=== PATIENT | female | born 1940 | race Caucasian/White ===

== ENCOUNTER → 2018-02-09 10:48 | Outpatient (CLI) | payer MEDICARE, SELFPAY ==
--- NOTE | 2018-02-09 | DI.MG.S_ITS ---
BILATERAL DIGITAL SCREENING MAMMOGRAM 3D/2D WITH CAD: 02/09/2018 CLINICAL: Routine screening. Comparison is made to exams dated: 02/04/2017 mammogram, 02/04/2016 mammogram, and 01/27/2015 mammogram - [facility]. There are scattered fibroglandular elements in both breasts. Current study was also evaluated with a Computer Aided Detection (CAD) system. No significant masses, calcifications, or other findings are seen in either breast. There has been no significant interval change. IMPRESSION: NEGATIVE There is no mammographic evidence of malignancy. A 1 year screening mammogram is recommended. This exam was interpreted at Station ID: [id number]. NOTE: For mammograms, a report in lay terms will be sent to the patient. Approximately 15% of breast malignancies will not be visualized mammographically. In the management of a palpable breast mass, a negative mammogram must not discourage biopsy of a clinically suspicious lesion. Electronically Signed By: Walt cronin/isidra:02/09/2018 16:41:37 letter sent: Normal Exam ACR BI-RADS Category 1: Negative 3341F
== END ==
PROVIDERS: PCP Internal Medicine; Visit Provider Internal Medicine
DX: Z12.31 Encounter for screening mammogram for malignant neoplasm of breast (principal)
CPT/HCPCS: 77063; 77067

== ENCOUNTER → 2018-02-17 08:58 | Outpatient (CLI) | payer MEDICARE, SELFPAY ==
[2018-02-17 09:42] LABS: Add Manual Diff / Slide Review NO; Basophils Percent Auto 0.6 % (0-2); Eosinophils Percent Auto 2.6 % (2-4); Hemoglobin 13.2 g/dL (12.0-16.0); Lymphocytes Percent Auto 28.6 % (25-40); Mean Corpuscular HGB Conc 33.8 % (30-36); Mean Corpuscular Hemoglobin 29.9 PG (26-34); Mean Corpuscular Volume 88.4 fL (80-100); Monocytes Percent Auto 8.5 % (3-14); Neutrophils Absolute Auto 3200 /uL (3000-5900); Neutrophils Percent Auto 59.7 % (50-75); Platelet Count 231 X10^3/uL (150-400); Red Blood Cell Count 4.41 X10^6/uL (4.0-5.2); Red Cell Distribution Width 12.8 % (11.6-14.8); White Blood Cell Count 5.3 X10^3/uL (4.5-11.0)
[2018-02-17 10:09] LABS: Alanine Aminotransferase 13 IU/L (9-52); Albumin Globulin Ratio 1.3 (1.0-2.8); Alkaline Phosphatase 108 U/L (38-126); Aspartate Aminotransferase 18 IU/L (14-36); BUN Creatinine Ratio 22.2 (6-22); Bilirubin Total 0.7 mg/dL (0.2-1.3); Blood Urea Nitrogen 20 mg/dL (7-17); Calcium 9.6 mg/dL (8.4-10.2); Carbon Dioxide 29 mmol/L (22-32); Chloride 106 mmol/L (98-107); Cholesterol 240 mg/dL (140-199); Estimated Glomerular Filt Rate > 60.0 mL/min (>60); Glucose 109 mg/dL (80-110); HDL Cholesterol 62 mg/dL (40-60); HEMOLYSIS < 15 (0-50); LDL Cholesterol Calculated 147 mg/dL (<100); Potassium 4.4 mmol/L (3.4-5.1); Sodium 144 mmol/L (137-145); Triglycerides 154 mg/dL (35-150)
[2018-02-17 10:38] LABS: Carcinoembryonic Antigen 1.3 ng/mL (0.1-3.0)
== END ==
PROVIDERS: PCP Internal Medicine; Visit Provider Internal Medicine
DX: C18.9 Malignant neoplasm of colon, unspecified (principal); Z00.00 Encounter for general adult medical examination without abnormal findings; C15.9 Malignant neoplasm of esophagus, unspecified; I47.1 Supraventricular tachycardia
CPT/HCPCS: 36415; 80053; 80061; 82378; 85025

== ENCOUNTER → 2019-02-12 13:55 | Outpatient (CLI) | payer MEDICARE, SELFPAY ==
--- NOTE | 2019-02-12 | DI.MG.S_ITS ---
BILATERAL DIGITAL SCREENING MAMMOGRAM 3D/2D WITH CAD: 02/12/2019 CLINICAL: Routine screening. Comparison is made to exams dated: 02/09/2018 mammogram, 02/04/2017 mammogram, and 02/04/2016 mammogram - [facility]. There are scattered fibroglandular elements in both breasts. Current study was also evaluated with a Computer Aided Detection (CAD) system. There are benign calcifications in both breasts. No significant masses, calcifications, or other findings are seen in either breast. There has been no significant interval change. IMPRESSION: There is no mammographic evidence of malignancy. A 1 year screening mammogram is recommended. This exam was interpreted at Station ID: [id number]. NOTE: For mammograms, a report in lay terms will be sent to the patient. Approximately 15% of breast malignancies will not be visualized mammographically. In the management of a palpable breast mass, a negative mammogram must not discourage biopsy of a clinically suspicious lesion. Electronically Signed By: Joss alaniz/isidra:02/12/2019 17:28:47 letter sent: Normal Exam ACR BI-RADS Category 2: Benign Finding(s) 3342F
== END ==
PROVIDERS: PCP Internal Medicine; Visit Provider Internal Medicine
DX: Z12.31 Encounter for screening mammogram for malignant neoplasm of breast (principal)
CPT/HCPCS: 77063; 77067

== ENCOUNTER → 2019-02-16 10:42 | Outpatient (CLI) | payer MEDICARE, SELFPAY ==
[2019-02-16 12:36] LABS: BUN Creatinine Ratio 16.7 (6-22); Blood Urea Nitrogen 15 mg/dL (7-17); Calcium 9.8 mg/dL (8.4-10.2); Carbon Dioxide 26 mmol/L (22-32); Chloride 105 mmol/L (98-107); Cholesterol 252 mg/dL (140-199); Estimated Glomerular Filt Rate > 60.0 mL/min (>60); Glucose 116 mg/dL (80-110); HDL Cholesterol 69 mg/dL (40-60); HEMOLYSIS < 15 (0-50); LDL Cholesterol Calculated 149 mg/dL (<100); Potassium 4.8 mmol/L (3.4-5.1); Sodium 139 mmol/L (137-145); Triglycerides 170 mg/dL (35-150)
== END ==
PROVIDERS: PCP Internal Medicine; Visit Provider Internal Medicine
DX: E78.00 Pure hypercholesterolemia, unspecified (principal); I47.1 Supraventricular tachycardia
CPT/HCPCS: 36415; 80048; 80061

== ENCOUNTER 2019-04-09 13:53 | Emergency (ER) | payer MEDICARE, SELFPAY ==
[2019-04-09 13:55] VITALS: BP 194/102; PULSE 84; RESP 22; TEMP 37; O2SAT 99; BMI 25.1
--- NOTE | 2019-04-09 14:12 | ED.URI ---
HPI - URI/Sore Throat <DANK Trimble - Last Filed: 04/09/19 14:53> General Chief Complaint: Upper Respiratory Symptoms Stated Complaint: Upper Respiratory Infection Time Seen by Provider: 04/09/19 13:54 Source: patient Mode of arrival: ambulatory Limitations: no limitations History of Present Illness HPI Narrative: This is a 78-year-old female, history of remote smoker, presents to ED with dry cough, chills for 1 day, and watery eyes which started 7 days ago. Patient reports her voice changed to hoarse and continued to have dry cough today. The patient reports she was exposed to her granddaughter and daughter who were visiting from [place] and they had similar symptoms prior to her symptoms occurred. Patient denies fever, chest pain, extremity swelling, nausea vomiting. Patient reports her immunization for pneumococcal has been updated and had 1st dose of RZV but had not received flu immunization for this season. Related Data Home Medications Medication Instructions Recorded Confirmed ACETAMINOPHEN 650 mg PO PRN #0 05/22/12 CHOLECALCIFEROL (VITAMIN D3) 4,000 iu PO Q DAY #0 05/22/12 (Vitamin D) amitriptyline 75 mg PO HS #0 05/22/12 atenolol 25 mg PO QDAY #0 05/22/12 omeprazole 20 mg PO TID #0 05/22/12 Previous Rx's Medication Instructions Recorded benzonatate [Tessalon Perles] 100 mg PO TID PRN #10 cap 04/09/19 Allergies Allergy/AdvReac Type Severity Reaction Status Date / Time codeine Allergy Unknown Verified 04/09/19 14:03 hydrocodone Allergy Unknown Verified 04/09/19 14:03 Review of Systems <DANK Trimble - Last Filed: 04/09/19 14:53> Review of Systems Narrative: General: See HPI HEENT: Denies sinus pain, ear pain, sore throat, difficulty swallowing, dizziness. Respiratory: See HPI Cardiovascular: Denies chest pain, palpitations, orthopnea, edema. Gastrointestinal: Denies nausea, vomiting, abdominal pain, diarrhea, constipation, melena. : Denies dysuria, frequency, incontinence, hematuria, urinary retention. Musculoskeletal: Denies weakness, joint pain or bony pain. Skin: Denies rash, skin lesions, or other. Neurologic: Denies weakness, headache, numbness, change in speech, confusion, seizures, incoordination. Psychiatric: No concerning psychosocial issues. 12-point review of systems is negative except for those stated above. PFSH <DANK Trimble - Last Filed: 04/09/19 14:53> Medical History History of colon cancer (Acute) History of esophageal cancer (Acute) Social History (Updated 04/09/19 @ 14:16 by DANK Trimble) Smoking Status: Former smoker Exam <DANK Trimble - Last Filed: 04/09/19 14:53> Narrative Exam Narrative: GEN: Alert, oriented x 3, well appearing and nourished, and in no acute distress. Head: Normal cephalic, atraumatic. No scalp or temporal tenderness, palpable mass or rash. EYES: Pupils are equal, round, and reactive to light and accommodation. Extraocular muscles are intact bilaterally. There is no subconjunctival hemorrhage, exudate and sclera non-icteric. ENT: Bilateral auditory canals and tympanic membranes. Hearing grossly intact. Nose without bleeding, purulent discharge or deviation. Facial sinuses nontender to palpate. Mucous membrane moist, no mucosal lesion. Throat without erythema, tonsillar hypertrophy or exudate. Uvula in midline, airway patent. Neck: Trachea in midline. No JVD, non-tender without lymphadenopathy. No masses or thyroid megaly. Supple, non-tender and no meningeal signs. CARDIAC: Normal regular rate and rhythm without murmurs, gallops, or rubs. No chest wall tenderness. No peripheral edema, cyanosis or pallor. Capillary refill is less than 2 seconds. RESPIRATORY: Lungs are cleat to auscultate bilaterally. No cough, wheezes, rales, or rhonchi. No stridor, respiratory distress, increase work of breathing, or accessary muscle used. ABD: Abdomen soft, nontender and non-distended. No guarding or rebound tenderness to palpate. Bowel sounds are normal in all 4 quadrants. There is no palpable masses or organomegaly. EXT: Full painless ROM of all extremities with no loss of sensation, strength, effusion or edema. SKIN: Warm, dry, normal color for patient. No erythema, lesions or rash over visible areas. BACK: Nontender without deformity or crepitance. No flank tenderness. NEUROLOGICAL: Alert and oriented to place, time and person. Sensation and motor function intact bilaterally. No facial droops, dysphasia. PSYCHIATRIC: Good judgement and reason, without hallucinations, abnormal affect or abnormal behaviors during the examination. Patient is not suicidal. Initial Vital Signs Initial Vital Signs: Vital Signs Temperature 98.6 F 04/09/19 13:55 Pulse Rate 84 04/09/19 13:55 Respiratory Rate 22 04/09/19 13:55 Blood Pressure 194/102 H 04/09/19 13:55 Pulse Oximetry 99 04/09/19 13:55 <Dioni Ling DO - Last Filed: 04/09/19 15:15> Initial Vital Signs Initial Vital Signs: Vital Signs Temperature 98.6 F 04/09/19 13:55 Pulse Rate 84 04/09/19 13:55 Respiratory Rate 22 04/09/19 13:55 Blood Pressure 194/102 H 04/09/19 13:55 Pulse Oximetry 99 04/09/19 13:55 Scores <CELESTINE TrimbleP - Last Filed: 04/09/19 14:53> GCS Aneudy coma scale eye opening: Spontaneous Aneudy coma scale verbal response: Orientated Aneudy coma scale motor response: Obey commands [place] coma scale total score: 15 Course <CELESTINE TrimbleP - Last Filed: 04/09/19 14:53> Vital Signs Vital signs: Vital Signs - 8 hr 04/09/19 13:55 04/09/19 14:32 Temperature 98.6 F Pulse Rate 84 Respiratory Rate 22 Blood Pressure 194/102 H 151/71 H Pulse Oximetry 99 <Dioni Ling DO - Last Filed: 04/09/19 15:15> Vital Signs Vital signs: Vital Signs - 8 hr 04/09/19 13:55 04/09/19 14:32 Temperature 98.6 F Pulse Rate 84 Respiratory Rate 22 Blood Pressure 194/102 H 151/71 H Pulse Oximetry 99 MDM - URI/Sore Throat <CELESTINE TrimbleP - Last Filed: 04/09/19 14:53> Differential Diagnosis Differential diagnosis: Likely upper respiratory infection, viral infection and bronchitis Medical Records Attestation: I reviewed the patient's medical records. MDM Narrative Medical decision making narrative: The patient is nontoxic appearance who presents with nonproductive cough for 1 week. Initially she had chills for a day but she denies other constitutional symptoms. She reports she has been hydrating well, slept well, and no other chief complains it is size nonproductive cough. She was exposed to family member who had similar symptoms and now they are on oral steroids. Her respiratory physical exam was benign except hoarse voice. The patient was discharged to home with OTC Mucinex DM and Tessalone perles for cough. Patient was advised to hydrate adequately and continue with supportive care at home. I discussed return precautions with patient and patient agrees with treatment plan. No further questions were expressed this time. Discharge Plan Departure Patient Disposition: Home Clinical Impression: Bronchitis Discharge Date/Time: 04/09/19 14:32 Instructions: DI for Bronchiolitis Activity Restrictions/Additional Instructions: You have been diagnosed with [bronchitis and cough. Your lung sounds are clear to auscultate. You might have exposed to upper respiratory virus from your family.]. What to do: *Take your medications as directed. Tessalon cough perles are ordered for to use as needed for cough. Please per get OTC Mucinex DM and take it twice a day as needed. Please hydrate adequately. *Follow up with your primary care provider in 2-3 days, call for an appointment. Let them know you were seen in the ED and that we asked you to be seen in follow up. *Return to ED if you have any new, worsening, or concerning symptoms, such as [chest pain, breathing difficulty, unable to tolerate fluids, fever, increasing productive cough, abdominal pain, or any acute concerns]. Prescriptions: New benzonatate [Tessalon Perles] 100 mg capsule 100 mg PO TID PRN (Reason: cough) Qty: 10 RF: 0 No Action ACETAMINOPHEN 650 mg PO PRN Qty: 0 RF: 0 amitriptyline 75 MG tablet 75 mg PO HS Qty: 0 RF: 0 atenolol 25 MG tablet 25 mg PO QDAY Qty: 0 RF: 0 omeprazole 40 MG capsule,delayed release(DR/EC) 20 mg PO TID Qty: 0 RF: 0 CHOLECALCIFEROL (VITAMIN D3) (Vitamin D) 4,000 iu PO Q DAY Qty: 0 RF: 0 Referrals: Nael Lovett MD [Primary Care Provider] - <Dioni Ling DO - Last Filed: 04/09/19 15:15> Sign Out Provider Sign Out Attestation: I was available for consultation during this patient's emergency department encounter
[2019-04-09 14:32] VITALS: BP 151/71
== END 2019-04-09 14:32 | disposition home or self-care (01) ==
PROVIDERS: Emergency Provider Nurse Practitioner Family; PCP Internal Medicine
DX: J40 Bronchitis, not specified as acute or chronic (principal)
CPT/HCPCS: 99282

== ENCOUNTER 2019-04-24 11:36 | Day surgery (SDC) | payer MEDICARE, SELFPAY ==
--- NOTE | 2019-04-24 | PATH_ITS ---
[facility] Accession Number: [id number] . 01 Material submitted: . colon - COLON POLYP NEAR ANASTOMOSIS . 01 Clinical history: . ENCOUNTER FOR SCREENING FOR MALIGNANT NEOPLASM . 02 Diagnosis: Colon, Near Anastomosis, Polyp: Sessile serrated adenoma. MRV 04/25/2019 1537 Local . 02 Electronically signed: . Ramos Cody MD, PhD, Pathologist NPI- [id number] . 01 Gross description: . COLON POLYP NEAR ANASTOMOSIS: Received in formalin are 3 fragment(s) of tovar, soft tissue measuring 0.1 x 0.1 x 0.1 cm to 0.4 x 0.2 x 0.2 cm which is entirely submitted and submitted entirely in 1 cassette(s) /[facility] 04/24/2019 2248 Local . 02 Pathologist provided ICD-10: D12.6 . 02 CPT . 266418 Performed at: 01 [facility] [address] [place] [address], [place], [place] [id number] MD Tay Parker MD Phone: [phone] Performed at: 02 [facility] [address] [place], [place] [id number] MD Paloma Duncan MD Phone: [phone]
[2019-04-24 12:16] VITALS: BP 118/78; PULSE 90; RESP 16; TEMP 36; O2SAT 96; BMI 24.0
[2019-04-24] MEDS: SODIUM CHLORIDE 0.9% 1,000 ML 200 ML IV (12:21)
--- NOTE | 2019-04-24 12:50 | P.HP_ITS ---
History of Present Illness History of Present Illness Date Patient Seen: 04/24/19 Time Patient Seen: 13:02 Chief complaint: 46470 SCREENING COLONOSCOPY Narrative: 78-year-old female presents for is regular screening colonoscopy - personal history of bowel resection for colon cancer. Now receives colonoscopies every 5 years. Last 5 years ago No abdominal complaints Tolerated prep well Patient History Family & Social History Social History: household members family Tobacco & Substance use: Smoking Status Former smoker Meds Home Medications and Allergies Home Medications Medication Instructions Recorded Confirmed Type ACETAMINOPHEN 650 mg PO PRN #0 05/22/12 History CHOLECALCIFEROL (VITAMIN D3) 4,000 iu PO Q DAY #0 05/22/12 History (Vitamin D) amitriptyline 75 mg PO HS #0 05/22/12 History atenolol 25 mg PO QDAY #0 05/22/12 History omeprazole 20 mg PO TID #0 05/22/12 History benzonatate [Tessalon Perles] 100 mg PO TID PRN #10 cap 04/09/19 Rx Allergies Allergy/AdvReac Type Severity Reaction Status Date / Time codeine Allergy Unknown Verified 04/09/19 14:03 hydrocodone Allergy Unknown Verified 04/09/19 14:03 Review of Systems Constitutional Constitutional: Denies fever(s) Eyes Eyes: Denies bulging eyes ENT Ears, Nose, Mouth, and Throat: No lip swelling Cardiovascular Cardiovascular: Denies generalize swelling Respiratory Respiratory: Denies stridor Gastrointestinal Gastrointestinal: Denies coffee ground emesis Musculoskeletal Musculoskeletal: Denies loss of height Integumentary/Breasts Skin/Breast: Denies wounds Neurologic Neurologic: Denies abnormal speech and Denies confusion Psychiatric Psychiatric: Denies confusion and Denies tactile hallucinations Endocrine Endocrine: Denies deepening of the voice Hematologic/Lymphatic Hematologic/Lymphatic: Denies lymphadenopathy Allergic/Immunologic Allergic/Immunologic: Denies lip swelling Exam Vital Signs (past 8 hours): - 04/24/19 12:16 Temperature 96.8 F L Pulse Rate 90 Respiratory Rate 16 Blood Pressure 118/78 Pulse Oximetry 96 Oxygen Delivery Method Room Air Const General: cooperative and healthy appearing Orientation: alert [facility] Head: normal to inspection Nose: nares normal Mouth: oral mucosae normal and lip normal Eyes Eyelids: eyelids normal Conjunctivae: conjunctivae normal Sclera: sclerae normal Neck Neck: supple and other (No thyromegally) Chest Chest: other (LCTAB , regular respiratory effort) Cardio Rhythm: regular rhythm Heart Sounds: S1 normal, S2 normal, no gallops, no murmurs and no rubs GI Other: Abdomen soft nontender nondistended Skin General: no rashes or lesions noted Neuro General: alert and awake Psych Appearance: grossly normal Affect: normal affect Assessment & Plan Assessment & Plan narrative: 78-year-old female status post resection for colon cancer, now 5 years status post most recent colonoscopy due. Risks and benefits procedure including , perforation, missed lesion, hypoxia all discussed Patient ready to proceed
[2019-04-24] MEDS: fentaNYL 250 MCG/5 ML INJ IV (13:28)
[2019-04-24] MEDS: MIDAZOLAM 5 MG/5 ML VIAL IV (13:28)
--- NOTE | 2019-04-24 13:33 | PM.OP.ENDO ---
Operative Date/Time/Diagnoses Date of procedure: 04/24/19 Time of procedure: 13:33 Pre-op diagnosis: colo rectal cancer screen Post-op diagnosis: same Procedure & Clinicians Study performed: Colonoscopy-screening -complete Polypectomy x1 cold biopsy forceps new Same procedure as scheduled: Yes Indications: 78-year-old woman with a personal history of colorectal cancer status post colon resection. Here 5 years after most recent screening colonoscopy. Surgeon: Delvis Hernandez Procedure Notes SCOAP/Timeout: Complete Procedure in detail: Patient was brought to the endoscopy suite, time-out was completed. She she was sedated over the entire course of the procedure with 2 mg of midazolam and 50 micro g of fentanyl. Digital rectal exam was performed without lesion 160 cm colonoscope was then introduced through the anus and advanced through the folds of the rectum and the colon until her apparent ileocolic anastomosis was identified -the scope was then slowly withdrawn a small sessile polyp was removed in the vicinity of the anastomosis with cold biopsy forcep. The remainder of the colon was inspected there are no additional lesions including with retroflexion of the scope in the rectum. Prep was adequate Scope withdrawal time: 8 minutes Sedation minutes: 23 Specimen(s): other (Sessile polyp) Complications: none Impression: 1. Small polyp status post polypectomy Post-procedure Recommendations: Colonscopy in 5 years Plan for aftercare: PACU then home Follow up: as needed Disposition: PACU
[2019-04-24 13:35] VITALS: BP 103/74; PULSE 76; RESP 20; TEMP 37.2; O2SAT 94
[2019-04-24 13:40] VITALS: BP 128/74; PULSE 71; RESP 18; O2SAT 96
[2019-04-24 13:45] VITALS: BP 131/66; PULSE 84; RESP 16; O2SAT 96
[2019-04-24 13:51] VITALS: BP 134/74; PULSE 73; RESP 14; O2SAT 96
[2019-04-24 13:59] VITALS: BP 146/61; PULSE 69; RESP 12; TEMP 36.2; O2SAT 95
== END 2019-04-24 14:15 | disposition home or self-care (01) ==
LOC: ENDO 11:38
PROVIDERS: PCP Internal Medicine; Visit Provider Surgery
PROC: 0DJD8ZZ Inspection of Lower Intestinal Tract, Via Natural or Artificial Opening Endoscopic (ICD-10-PCS; CPT 45378; principal; 2019-04-24 12:45)
DX: Z85.038 Personal history of other malignant neoplasm of large intestine (principal); D12.6 Benign neoplasm of colon, unspecified
CPT/HCPCS: 45380; 99152; J2250; J3010

== ENCOUNTER 2019-09-13 07:51 | Day surgery (SDC) | payer MEDICARE, SELFPAY ==
[2019-09-13 08:27] VITALS: BP 160/92; PULSE 94; RESP 18; TEMP 36.2; O2SAT 94
[2019-09-13] MEDS: PROPARACAINE 0.5% OPHTH SOL 2 DROPS EYE-OP (08:33)
[2019-09-13 08:35] VITALS: BP 160/92; PULSE 69; RESP 12; TEMP 36.2; O2SAT 94
[2019-09-13] MEDS: CATARACT EYE COMPOUND (10 DROPS/SYRINGE) 3 DROPS EYE-OP (08:36)
[2019-09-13 08:37] VITALS: BMI 25.3
--- NOTE | 2019-09-13 09:03 | PM.PREOP ---
Pre-operative Note Interval Note History & Physical reviewed/Exam performed by Physician: Yes Changes to H&P: No
--- NOTE | 2019-09-13 09:06 | PM.PREOP ---
Pre-operative Note Interval Note History & Physical reviewed/Exam performed by Physician: Yes Changes to H&P: No
--- NOTE | 2019-09-13 09:26 | SUR.OPER ---
Supine on eye stretcher, head on extension cradle secured with tape. Arms tucked at sides with blanket. Pillow under knees.
[2019-09-13] MEDS: BALANCED SALT IRRIG SOLN NO.2 15 ML 5 ML IRR (09:30)
[2019-09-13] MEDS: BALANCED SALT IRRIG SOLN NO.2 500 ML, EPINEPHrine 1 MG IRR (09:43)
[2019-09-13] MEDS: PHENYLEPHRINE/LIDOCAINE VIAL (OR) 0.2 ML EYE-OP (09:44)
[2019-09-13] MEDS: LIDOCAINE 2% INJ SDV 2 ML INJ (09:44)
[2019-09-13] MEDS: TETRACAINE 0.5% OPHTH DROPS 4 ML 2 DROPS EYE-OP (09:44)
--- NOTE | 2019-09-13 09:44 | PM.OP.1 ---
Procedure & Clinicians Procedure: Cataract extraction with intraocular lens implant, right. 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 The correct patient, surgical site and lens were confirmed. 0.5 % tetracaine drops were placed in the right eye. The patient was prepped and draped in the typical sterile manner. A lid speculum was placed in the eye. 2% lidocaine was placed on the eye. A paracentesis port was created with a side-port blade. 0.1 mL of 1% preservative free lidocaine with phenylephrine was injected into the anterior chamber. Viscoelastic was injected into the anterior chamber. A 2.6mm keratome was used to create a clear corneal temporal incision. Cystotome and Utrata forceps were used to create a continuous curvilinear capsulorrhexis. Balanced salt solution was used to hydrodissect the nucleus. Phacoemulsification was used to remove the lens. The capsular bag was inflated with viscoelastic. A Atkins ZCBOO +27.5D lens was inserted into the capsule. Viscoelastic was removed and the wound hydrated. The wound was found to be leak free and the eye was assessed to be at normal physiologic pressure. 0.1mL Moxifloxacin (5mg/mL) preservative free was injected into the anterior chamber. The lid speculum was removed and the patient left the operating room in excellent condition. Complications: none Post-operative Condition: stable Disposition: same day surgery
[2019-09-13] MEDS: MOXIFLOXACIN INJ 5 MG/ML VIAL EYE-OP (09:45)
[2019-09-13] MEDS: CHONDROIDTIN/SOD HYALURONATE 1.05 ML SYRINGE INTRAOCULA (09:45)
[2019-09-13 09:50] VITALS: BP 189/79; PULSE 63; RESP 18; TEMP 36.4; O2SAT 94
--- NOTE | 2019-09-13 10:02 | SUR.PHASEII ---
pt awake and alert. States she is ready to go home. Pt to be discharged with her grandaughter. Pt denies any complaints.
== END 2019-09-13 10:05 | disposition home or self-care (01) ==
LOC: OR 07:53
PROVIDERS: PCP Internal Medicine; Referring Provider Ophthalmology; Visit Provider Ophthalmology
PROC: (CPT 66984; principal; 2019-09-13 09:30)
DX: H25.11 Age-related nuclear cataract, right eye (principal)
CPT/HCPCS: 66984; J0171; J2250; J3010

== ENCOUNTER 2019-09-27 07:21 | Day surgery (SDC) | payer MEDICARE, SELFPAY ==
[2019-09-27 08:27] VITALS: BP 163/87; PULSE 62; RESP 12; TEMP 36.3; O2SAT 98; BMI 25.0
[2019-09-27] MEDS: CATARACT EYE COMPOUND (10 DROPS/SYRINGE) 3 DROPS EYE-OP (08:35)
[2019-09-27] MEDS: PROPARACAINE 0.5% OPHTH SOL 2 DROPS EYE-OP (08:36)
--- NOTE | 2019-09-27 08:37 | PM.PREOP ---
Pre-operative Note Interval Note History & Physical reviewed/Exam performed by Physician: Yes Changes to H&P: No
[2019-09-27] MEDS: PHENYLEPHRINE/LIDOCAINE VIAL (OR) 0.2 ML EYE-OP (09:32)
[2019-09-27] MEDS: BALANCED SALT IRRIG SOLN NO.2 15 ML 5 ML IRR (09:32)
[2019-09-27] MEDS: LIDOCAINE 2% INJ SDV 2 ML INJ (09:32)
[2019-09-27] MEDS: MOXIFLOXACIN INJ 5 MG/ML VIAL EYE-OP (09:32)
[2019-09-27] MEDS: CHONDROIDTIN/SOD HYALURONATE 1.05 ML SYRINGE INTRAOCULA (09:33)
[2019-09-27] MEDS: BALANCED SALT IRRIG SOLN NO.2 500 ML, EPINEPHrine 1 MG IRR (09:33)
[2019-09-27] MEDS: TETRACAINE 0.5% OPHTH DROPS 4 ML 2 DROPS EYE-OP (09:34)
--- NOTE | 2019-09-27 09:49 | PM.OP.1 ---
Procedure & Clinicians Procedure: Cataract extraction with intraocular lens implant, left. Same procedure as scheduled: Yes Indications: Visually significant age related nuclear sclerosis, left Surgeon: Cameron Deal Click Yes if Unassisted: Yes Anesthesia Type: MAC +/- Operative Notes Procedure in detail: The patient was brought to the operating suite. The correct patient, surgical site and lens were confirmed. 0.5 % tetracaine drops were placed in the left eye. The patient was prepped and draped in the typical sterile manner. A lid speculum was placed in the eye. 2% lidocaine was placed on the eye. A paracentesis port was created with a side-port blade. 0.1 mL of 1% preservative free lidocaine with phenylephrine was injected into the anterior chamber. Viscoelastic was injected into the anterior chamber. A 2.6mm keratome was used to create a clear corneal temporal incision. Cystotome and Utrata forceps were used to create a continuous curvilinear capsulorrhexis. Balanced salt solution was used to hydrodissect the nucleus. Phacoemulsification was used to remove the lens. The capsular bag was inflated with viscoelastic. A Atkins ZCBOO +31.0D lens was inserted into the capsule. Viscoelastic was removed and the wound hydrated. The wound was found to be leak free and the eye was assessed to be at normal physiologic pressure. 0.1mL Moxifloxacin (5mg/mL) preservative free was injected into the anterior chamber. The lid speculum was removed and the patient left the operating room in excellent condition. Complications: none Post-operative Condition: stable Disposition: same day surgery
[2019-09-27 09:56] VITALS: BP 194/92; PULSE 69; RESP 16; TEMP 36.6; O2SAT 95
== END 2019-09-27 10:07 | disposition home or self-care (01) ==
LOC: OR 07:22
PROVIDERS: PCP Internal Medicine; Referring Provider Ophthalmology; Visit Provider Ophthalmology
PROC: (CPT 66984; principal; 2019-09-27 09:00)
DX: H25.12 Age-related nuclear cataract, left eye (principal)
CPT/HCPCS: 66984; J0171; J2250; J3010

== ENCOUNTER → 2020-02-27 14:38 | Outpatient (CLI) | payer MEDICARE, SELFPAY ==
[2020-02-27 15:59] LABS: Add Manual Diff / Slide Review NO; Basophils Absolute Auto 0 /uL (0-100); Basophils Percent Auto 0.5 % (0-2); Eosinophils Absolute Auto 200 /uL (0-450); Eosinophils Percent Auto 2.7 % (2-4); Hematocrit 37.4 % (36-46); Hemoglobin 12.4 g/dL (12.0-16.0); Lymphocytes Absolute Auto 2100 /uL (1100-4500); Mean Corpuscular HGB Conc 33.2 % (30-36); Mean Corpuscular Hemoglobin 29.3 PG (26-34); Mean Corpuscular Volume 88.2 fL (80-100); Monocytes Absolute Auto 500 /uL (0-900); Monocytes Percent Auto 8.4 % (3-14); Neutrophils Absolute Auto 3100 /uL (1500-7000); Neutrophils Percent Auto 52.4 % (50-75); Platelet Count 224 X10^3/uL (150-400); Red Blood Cell Count 4.24 X10^6/uL (4.0-5.2)
[2020-02-27 16:48] LABS: Alanine Aminotransferase 8 IU/L (<35); Albumin 3.9 g/dL (3.5-5.0); Albumin Globulin Ratio 1.3 (1.0-2.8); Alkaline Phosphatase 115 U/L (38-126); Aspartate Aminotransferase 22 IU/L (14-36); BUN Creatinine Ratio 20.7 (6-22); Bilirubin Total 0.4 mg/dL (0.2-1.3); Blood Urea Nitrogen 17 mg/dL (7-17); Calcium 9.5 mg/dL (8.4-10.2); Carbon Dioxide 27 mmol/L (22-32); Chloride 105 mmol/L (98-107); Cholesterol 222 mg/dL (140-199); Estimated Glomerular Filt Rate > 60.0 mL/min (>60); Globulin 2.9 g/dL (1.7-4.1); Glucose 138 mg/dL (80-110); HDL Cholesterol 59 mg/dL (40-60); HEMOLYSIS < 15 (0-50); LDL Cholesterol Calculated 118 mg/dL (<100); Potassium 3.7 mmol/L (3.4-5.1); Sodium 138 mmol/L (137-145); Total Protein 6.8 g/dL (6.3-8.2); Triglycerides 225 mg/dL (35-150)
== END ==
PROVIDERS: PCP Internal Medicine; Referring Provider Internal Medicine; Visit Provider Internal Medicine
DX: Z00.00 Encounter for general adult medical examination without abnormal findings (principal); C15.9 Malignant neoplasm of esophagus, unspecified; I47.1 Supraventricular tachycardia; E78.00 Pure hypercholesterolemia, unspecified
CPT/HCPCS: 36415; 80053; 80061; 85025

== ENCOUNTER → 2020-02-29 12:32 | Outpatient (CLI) | payer MEDICARE, SELFPAY | PROVIDERS: PCP Internal Medicine; Referring Provider Internal Medicine; Visit Provider Internal Medicine | DX: Z13.820 Encounter for screening for osteoporosis (principal); M81.0 Age-related osteoporosis without current pathological fracture; Z78.0 Asymptomatic menopausal state | CPT/HCPCS: 77080 ==

== ENCOUNTER → 2020-03-21 14:24 | Outpatient (CLI) | payer MEDICARE, SELFPAY ==
--- NOTE | 2020-03-21 | DI.MG.S_ITS ---
BILATERAL DIGITAL SCREENING MAMMOGRAM 3D/2D WITH CAD: 03/21/2020 CLINICAL: Routine screening. Comparison is made to exams dated: 02/12/2019 mammogram, 02/09/2018 mammogram, and 02/04/2017 mammogram - [facility]. There are scattered fibroglandular elements in both breasts. Current study was also evaluated with a Computer Aided Detection (CAD) system. There are benign calcifications in both breasts. No significant masses, calcifications, or other findings are seen in either breast. There has been no significant interval change. IMPRESSION: BENIGN There is no mammographic evidence of malignancy. A 1 year screening mammogram is recommended. This exam was interpreted at Station ID: [id number]. NOTE: For mammograms, a report in lay terms will be sent to the patient. Approximately 15% of breast malignancies will not be visualized mammographically. In the management of a palpable breast mass, a negative mammogram must not discourage biopsy of a clinically suspicious lesion. Electronically Signed By: Joss alaniz/isidra:03/21/2020 17:39:09 letter sent: Normal Exam ACR BI-RADS Category 2: Benign Finding(s) 3342F
[2020-03-23 07:10] LABS: Calcium 9.5 mg/dL (8.7-10.3); Parathyroid Hormone, Intact 94 pg/mL (15-65)
== END ==
PROVIDERS: PCP Internal Medicine; Referring Provider Internal Medicine; Visit Provider Internal Medicine
DX: Z12.31 Encounter for screening mammogram for malignant neoplasm of breast (principal); M81.0 Age-related osteoporosis without current pathological fracture
CPT/HCPCS: 36415; 77063; 77067; 82310; 83970

== ENCOUNTER → 2020-09-04 08:25 | Outpatient (CLI) | payer MEDICARE, SELFPAY ==
[2020-09-04] MEDS: COVID-19 VACC #1, MRNA(MOD) 100 MCG/0.5 ML VIAL IM (08:34)
== END ==
PROVIDERS: PCP Internal Medicine; Visit Provider Internal Medicine
DX: Z23 Encounter for immunization (principal)
CPT/HCPCS: 0011A; 91301

== ENCOUNTER → 2020-09-24 13:13 | Outpatient (CLI) | payer MEDICARE, SELFPAY ==
[2020-09-25 09:54] LABS: Parathyroid Hormone Int 108 pg/mL (15-65)
== END ==
PROVIDERS: PCP Internal Medicine; Referring Provider Internal Medicine; Visit Provider Internal Medicine
DX: M81.0 Age-related osteoporosis without current pathological fracture (principal)
CPT/HCPCS: 36415; 83970

== ENCOUNTER → 2020-10-02 07:57 | Outpatient (CLI) | payer MEDICARE, SELFPAY ==
[2020-10-02] MEDS: COVID-19 VACC #2, MRNA(MOD) 100 MCG/0.5 ML VIAL IM (08:02)
== END ==
PROVIDERS: PCP Internal Medicine; Visit Provider Internal Medicine
DX: Z23 Encounter for immunization (principal)
CPT/HCPCS: 0012A; 91301

== ENCOUNTER → 2020-10-10 08:25 | Outpatient (CLI) | payer MEDICARE, SELFPAY ==
[2020-10-10 10:32] LABS: Calcium 24 Hour Urine 87 mg/day (100-300); Calcium Urine Random 6.7 mg/dL; Collection Time Urine 24 Hours; Total Volume Urine 1300 mL
== END ==
PROVIDERS: PCP Internal Medicine; Referring Provider Internal Medicine; Visit Provider Internal Medicine
DX: E21.3 Hyperparathyroidism, unspecified (principal)
CPT/HCPCS: 82340

== ENCOUNTER → 2021-03-26 08:26 | Outpatient (CLI) | payer MEDICARE, SELFPAY ==
--- NOTE | 2021-03-26 | DI.MG.S_ITS ---
BILATERAL DIGITAL SCREENING MAMMOGRAM 3D/2D WITH CAD: 03/26/2021 CLINICAL: Routine screening. Comparison is made to exams dated: 03/21/2020 mammogram, 02/12/2019 mammogram, and 02/09/2018 mammogram - [facility]. There are scattered fibroglandular elements in both breasts. Current study was also evaluated with a Computer Aided Detection (CAD) system. There are benign calcifications in both breasts. No significant masses, calcifications, or other findings are seen in either breast. There has been no significant interval change. IMPRESSION: BENIGN There is no mammographic evidence of malignancy. A 1 year screening mammogram is recommended. This exam was interpreted at Station ID: [id number]. NOTE: For mammograms, a report in lay terms will be sent to the patient. Approximately 15% of breast malignancies will not be visualized mammographically. In the management of a palpable breast mass, a negative mammogram must not discourage biopsy of a clinically suspicious lesion. Electronically Signed By: Tay garcia/isidra:03/26/2021 09:02:44 letter sent: Normal Exam ACR BI-RADS Category 2: Benign Finding(s) 3342F
== END ==
PROVIDERS: PCP Internal Medicine; Referring Provider Internal Medicine; Visit Provider Internal Medicine
DX: Z12.31 Encounter for screening mammogram for malignant neoplasm of breast (principal)
CPT/HCPCS: 77063; 77067